=== PATIENT | female | born 1965 | race Caucasian/White ===

== ENCOUNTER 2018-02-20 11:44 | Emergency (ER) | payer OTHER ==
[2018-02-20] MEDS ORDERED: NATURE'S BLEND400 I1 (12:05)
[2018-02-20] MEDS ORDERED: CALCIUM500 M1 (12:05)
[2018-02-20 12:30] LABS: HEMATOCRIT 40.7 % (37.0-47.0); HEMOGLOBIN 13.6 g/dL (12.5-16.0); MEAN CELL VOLUME 84 fl (78-100); MEAN CORPUSCULAR HEMOGLOBIN 28 pg (27-31); MEAN CORPUSCULAR HGB CONC 33 g/dL (33-37); MEAN PLATELET VOLUME 10.6 fl (7.4-10.4); PLATELET COUNT 293 K/mm3 (130-400); RED BLOOD COUNT 4.82 M/mm3 (4.10-5.30); RED CELL DISTRIBUTION WIDTH 15.1 % (11.5-14.5); WHITE BLOOD COUNT 13.4 K/mm3 (4.8-10.8)
[2018-02-20 12:39] LABS: ALBUMIN 4.6 g/dL (3.5-5.0); CALCIUM 9.9 mg/dL (8.4-10.2); POTASSIUM 4.1 mmol/L (3.6-5.0); TOTAL BILIRUBIN 0.5 mg/dL (0.2-1.3); TOTAL PROTEIN 7.4 g/dL (6.3-8.2)
[2018-02-20 13:02] LABS: LYMPHOCYTE 14 % (20-51); MONOCYTE 1 % (3-10); NEUTROPHILS 84 % (42-75)
[2018-02-20 13:16] LABS: PARTIAL THROMBOPLASTIN TIME 19.7 SECONDS (21.0-32.0); PROTHROMBIN TIME 9.4 SECONDS (9.0-12.0)
[2018-02-20 13:17] LABS: D-DIMER 0.62 mg/L FEU (0.15-0.50)
[2018-02-20] MEDS ORDERED: ANASTROZOLE1 M1 (13:42)
[2018-02-20] MEDS ORDERED: ZOFRAN4 M2 PO (15:38)
[2018-02-20] MEDS ORDERED: WAL-DRAM 225 MG PO (15:38)
[2018-02-20 15:58] VITALS: BP 133/80
[2018-02-20 16:09] LABS: URINE APPEARANCE HAZY; URINE COLOR YELLOW
[2018-02-20 16:10] LABS: URINE BILIRUBIN NEGATIVE (NEGATIVE); URINE BLOOD NEGATIVE (NEGATIVE); URINE GLUCOSE NEGATIVE (NEGATIVE); URINE KETONE NEGATIVE (NEGATIVE); URINE LEUKOCYTE ESTERASE NEGATIVE (NEGATIVE); URINE NITRATE NEGATIVE (NEGATIVE); URINE PROTEIN(semi-quant) TRACE mg/dL (NEGATIVE); URINE UROBILINOGEN NORMAL (NORMAL); URINE WBC 0-1 /hpf (0-3)
== END 2018-02-20 15:58 | disposition home or self-care (01) ==
LOC: ED 11:44
PROVIDERS: Nurse Practitioner
DX: R42 Dizziness and giddiness (principal); Z79.899 Other long term (current) drug therapy
CPT/HCPCS: J2060; J2550; J7030; Q9967